=== PATIENT | male | born 1960 | race African-American/Black ===

== ENCOUNTER 2025-05-17 08:11 | Emergency (ER) | payer MEDICARE, SELFPAY ==
[2025-05-17 08:48] LABS: Hematocrit 46.6 % (42.0-52.0); Hemoglobin 15.9 g/dL (14.0-18.0); MDiff Complete? YES; Mean Corpuscular Hemoglobin 29.6 pg (27.0-31.0); Mean Corpuscular Volume 86.9 fl (78.0-98.0); Platelet Count 248 10x3/uL (130-400); Red Blood Cell (RBC) Count 5.36 mill/uL (4.70-6.10); White Blood Cell (WBC) Count 7.5 10x3/uL (4.8-10.8)
[2025-05-17] MEDS ORDERED: cefTRIAXone (ROCEPHIN) 1 GM VIAL ONE (08:48)
[2025-05-17 09:03] LABS: Troponin I Less than 0.010 ng/mL (< 0.028)
[2025-05-17 09:04] LABS: ALT (SGPT) 11 U/L (Less than 45); AST (SGOT) 27 U/L (11-34); Albumin 4.1 g/dL (3.1-4.5); Alkaline Phosphatase 73 U/L (40-110); Anion Gap 18 mmol/L (10-20); BUN (Urea Nitrogen) 6 mg/dL (8.4-25.7); Bilirubin, Total 0.6 mg/dL (0.3-1.2); Calc. Creatinine Clearance 0 mL/min (70-130); Calcium 9.7 mg/dL (7.8-10.44); Carbon Dioxide 24 mmol/L (23-31); Chloride 100 mmol/L (98-107); Globulin 4.1 g/dL (2.4-3.5); Glucose 88 mg/dL (80-115); Potassium 3.9 mmol/L (3.5-5.1); Sodium 138 mmol/L (136-145)
[2025-05-17 09:48] LABS: Glucose, Urine (Dipstick) Negative (Negative); Leukocyte Negative (Negative); Protein, Urine (Dipstick) 100 mg/dL (Neg-Trace); Specific Gravity, Urine 1.015 (1.005-1.030)
[2025-05-17 09:49] LABS: Bacteria/HPF None Seen HPF (None Seen); CAUTI Indications for Culture Dysuria,urgency,freq; RBC/HPF None Seen HPF (0-3); WBC/HPF None Seen HPF (0-3)
[2025-05-17 09:50] LABS: Urine Culture Reflex No No
== END 2025-05-17 10:53 | disposition home or self-care (01) ==
LOC: BURERS 08:11
DX: L03.116 Cellulitis of left lower limb (principal); I10 Essential (primary) hypertension; L08.89 Other specified local infections of the skin and subcutaneous tissue; F17.210 Nicotine dependence, cigarettes, uncomplicated
CPT/HCPCS: 71046; 73630; 80053; 81001; 83605; 84484; 85025; 93005; J0696; 96365; 96375